=== PATIENT | female | born 1990 | race Caucasian/White ===

== ENCOUNTER 2017-09-12 14:06 | Day surgery (SDC) | payer OTHER ==
[2017-09-12] VITALS (10 sets, daily range): BP systolic 101–113; BP diastolic 58–73; PULSE 70–99; RESP 12–22; Ht 154.9 cm; Wt 65.4 kg
[~2017-09-12] VITALS: Ht 154.9 cm; Wt 65.4 kg
[2017-09-12] MEDS ORDERED: MEPERIDINE 100 MG INJ ONE (16:12)
[2017-09-12] MEDS ORDERED: PROPOFOL 20 ML ONE (16:12)
[2017-09-12] MEDS ORDERED: LIDOCAINE 2% (SDV) 5 ML INJ ONE (16:12)
[2017-09-12] MEDS ORDERED: LIDOCAINE 1% (MPF) 30 ML INJ ONE (16:22)
[2017-09-12] MEDS ORDERED: BUPIVACAINE 0.5% (SDV) 30 ML INJ ONE (16:22)
[2017-09-12] MEDS ORDERED: POLYMYXIN/BACITRACIN 1L IRRIG ONE (16:22)
--- NOTE | 2017-09-12 17:57 | HPN ---
Date/Time of Note Date/Time of Note DATE: 09/12/17 TIME: 17:57 Interval H&P Admission Note Pt. seen H&P reviewed: No system changes YUMI ORELLANA Sep 12, 2017 17:57
[2017-09-12] MEDS ORDERED: DIPHENHYDRAMINE 50 MG INJ IV PRN (18:00)
[2017-09-12] MEDS ORDERED: OXYCODONE/ACETAMINOPHEN (5/325) TAB PO PRN ×2 (18:00)
[2017-09-12] MEDS ORDERED: FENTAnyl 50 MCG/ML VIAL IV PRN ×3 (18:00)
[2017-09-12] MEDS ORDERED: HYDROmorphONE (0.2 MG/ML) 10ML SYG IV PRN ×3 (18:00)
[2017-09-12] MEDS ORDERED: MIDAZOLAM 1 MG/ML 2 ML INJ IV PRN (18:00)
[2017-09-12] MEDS ORDERED: ONDANSETRON 4 MG INJ IV PRN (18:00)
[2017-09-12] MEDS ORDERED: METOCLOPRAMIDE 10 MG INJ IV PRN (18:00)
[2017-09-12] MEDS ORDERED: GELATIN SIZE 100 SPONGE ONE (19:12)
[2017-09-12] MEDS ORDERED: CEFAZOLIN 1 GM INJ ONE (19:35)
--- NOTE | 2017-09-12 19:40 | OPPN ---
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 harvest of right distal radius bone graft for nonunion Surgeon see signature line lead recreation assistant none Anesthesia: general Estimated blood loss: 0 - 10 ml's Transfusion Required none Specimen none Grafts/Implants none Complications none YUMI ORELLANA Sep 12, 2017 19:40
[2017-09-12] MEDS ORDERED: FENTAnyl 50 MCG/ML VIAL ONE ×2 (19:50→20:13)
[2017-09-12] MEDS ORDERED: MEPERIDINE 25 MG INJ ONE (20:06)
[2017-09-12] MEDS ORDERED: ONDANSETRON 4 MG INJ ONE (20:06)
[2017-09-12] MEDS: MEPERIDINE 25 MG INJ IV PRN ×2 (20:07→20:51)
--- NOTE | 2017-09-12 20:33 | OPR ---
DATE OF OPERATION: 09/12/2017 SURGEON: Doyle Christian MD ANESTHESIA: General. PREOPERATIVE DIAGNOSIS: Right distal ulna shaft fracture/nonunion. POSTOPERATIVE DIAGNOSIS: Right distal ulna shaft fracture/nonunion. OPERATION PERFORMED: 1. Open treatment of right distal ulna shaft fracture/nonunion, with plate and screw fixation. 2. [place] of right distal radius bone graft for application in right distal ulna fracture site. 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 INDICATION FOR PROCEDURE: This is a 26-year-old female with injury to the right forearm. She attempted conservative management with cast immobilization, but had persistent fracture/nonunion and tenderness at the fracture site. She elected to proceed with surgery, understanding the risks and benefits. OPERATIVE PROCEDURE: Patient was seen in the preoperative area, and all further questions were answered. Again, she gave informed consent, understanding the risks and benefits. She was taken to the operative suite and placed in supine position; 2 grams of Ancef IV given, and tourniquet placed on the right upper extremity. Right extremity was prepped with ChloraPrep stick and draped in the usual sterile fashion. Esmarch bandage was used to exsanguinate the extremity, and tourniquet inflated to 250 mmHg. A longitudinal incision over the ulna shaft was utilized, with sharp dissection carried down through skin and subcutaneous tissue. The fracture site was identified and was dissected around circumferentially. The fracture callus was debrided, and the fracture was reduced. A Med[employer]is ulnar shortening osteotomy plate was placed over the distal ulna and was secured with screws proximally and distally. X-ray imaging showed appropriate hardware placement and bony alignment. Due to the fracture nonunion and small areas of bone loss, I thought it was best to place distal radius autograft into the fracture site. Attention was then turned to the dorsal distal radius, and sharp dissection carried down through skin and subcutaneous tissue on overlying Marycarmen's tubercle. The EPL tendon sheath was incised, and EPL tendon retracted radially. A curette was used to enter the medullary canal, and bone autograft was harvested. The cancellous bone autograft was placed into a cup, and it was placed into the ulna fracture site. Prior to placing the bone graft, the wound was copiously irrigated. After placement of bone graft, the deep fascial layer was closed with 3-0 Monocryl. Skin was closed with 4-0 nylon. Gelfoam was placed into the distal radius bone autograft site, and skin was closed with 4-0 nylon. Xeroform placed over the wound, followed by sterile gauze, Webril, and a short-arm splint. Tourniquet was deflated after 74 minutes, and patient was awakened from anesthesia. She was taken to the postoperative suite in stable condition and tolerated the procedure well, without complication. SPECIMENS: None. ESTIMATED BLOOD LOSS: 5 mL. SPONGE, INSTRUMENT, NEEDLE COUNTS: Correct. TOURNIQUET TIME: 74 minutes. CONDITION ON DISCHARGE: Stable. Dictated By: Doyle Christian MD /[email or web address] /Document#: [id number]
[2017-09-13] MEDS ORDERED: LACTATED RINGER'S 1,000 ML IV* SCH (06:00)
--- NOTE | 2017-09-13 06:54 | RADRPT ---
PROCEDURE: Right forearm study CLINICAL INDICATION: Intraoperative evaluation TECHNIQUE: 9 intraoperative images were obtained of the right forearm . No fluoroscopic time was o btained. COMPARISON: None FINDINGS: 9 C-arm matrix images were obtained of the right forearm intraoperatively. No fluoroscopic time was obtained. The composite demonstrates placement of a fixation plate and screws involving the distal r ight ulna stabilizing the distal right ulnar fracture. No other fractures or malalignment. No other foreign bodies. IMPRESSION: Intraoperative images as described above. RPTAT:AAJJ Physician Jaron Date Time Electronically viewed and signed by Physician Jaron on 09/13/2017 05:55 BM/
== END 2017-09-12 21:06 | disposition home or self-care (01) ==
LOC: SDS 14:06
PROVIDERS: ATTEND Orthopaedic Surgery Hand Surgery
DX: S52.201K Unspecified fracture of shaft of right ulna, subsequent encounter for closed fracture with nonunion (principal); X58.XXXD Exposure to other specified factors, subsequent encounter
CPT/HCPCS: 25405; 73090; J0690; J2175; J2405; J3010; Z7512; Z7610